=== PATIENT | female | born 1950 | race Caucasian/White ===

== ENCOUNTER 2020-08-05 07:42 | Emergency (ER) | payer OTHER ==
[~2020-08-05] VITALS: Ht 152.4 cm; Wt 50.8 kg
[~2020-08-05 07:42] MED LIST: Cipro PO; TRAM1TAB98 PO
[2020-08-05] MEDS ORDERED: CLONAZEPAM0.5 MG (07:45)
[2020-08-05] MEDS ORDERED: ASA-EC81 MG (07:45)
[2020-08-05] MEDS ORDERED: VERAPAMIL ER120 MG (07:45)
[2020-08-05] MEDS ORDERED: OMEPRAZOLE20 M1 (07:46)
[2020-08-05] MEDS ORDERED: FAMOTIDINE40 MG (07:46)
[2020-08-05] MEDS ORDERED: ATORVASTATIN CA10 MG (07:46)
[2020-08-05] MEDS ORDERED: FAMOTIDINE20 MG (07:46)
[2020-08-05] MEDS ORDERED: IRBESARTAN150 MG (07:47)
[2020-08-05] MEDS ORDERED: CARVEDILOL12.5 M1 (07:47)
== END 2020-08-05 15:22 | disposition home or self-care (01) ==
LOC: ER 07:42 → CPU-OBS 08:20 → ER 15:22
DX: R07.89 Other chest pain (principal); F41.8 Other specified anxiety disorders